=== PATIENT | male | born 1990 | race Caucasian/White ===

== ENCOUNTER 2017-04-26 22:56 | Emergency (ER) | payer SELFPAY ==
[~2017-04-26] VITALS: Ht 182.9 cm; Wt 90.5 kg
[~2017-04-26 22:56] MED LIST: HYDR-3011 PO; LORA-441 PO
[2017-04-26 22:59] VITALS: Ht 182.9 cm; Wt 90.5 kg
--- NOTE | 2017-04-27 00:41 | RADRPT ---
PROCEDURE: XR Chest. CLINICAL INDICATION: Shortness of breath. TECHNIQUE: Portable AP upright view of the chest was obtained. COMPARISON: None. FINDINGS: The cardiomediastinal silhouette is within normal limits. The lungs are clear. There is no evidenc e for pleural effusion, pneumothorax or pulmonary vascular congestion. The osseous structures are i ntact with no evidence for acute abnormality. RPTAT:HJJR IMPRESSION: No evidence for acute intrathoracic pathology. Physician Shena Date Time Electronically viewed and signed by Physician Shena on 04/27/2017 00:41 JR/
--- NOTE | 2017-04-27 01:30 | ERD ---
ER Documentation Chief Complaint Date/Time DATE: 04/27/17 TIME: 01:25 Chief Complaint hx of anxiety, felt heart was racing with SOB s/s resolved HPI Patient is a 26-year-old male with history of anxiety who presents to the emergency department for concerns of palpitations and shortness of breath. Patient states his symptoms occurred 1.5 hours ago. Patient states he sat down to eat dinner when his symptoms started. Patient states he was drinking one beer at the time. Patient states his symptoms lasted less than 1 minute. At this time patient is no longer having palpitations or shortness of breath. Patient denies any chest pain, nausea, vomiting, dizziness, lightheadedness or loss of consciousness. Patient does report daily stress. Patient denies any homicidal or suicidal ideations at this time. Patient states he has seen a psychiatrist in the past for his symptoms and given a prescription for Ativan which she does not wish to take. No recent travel. No recent surgeries. Patient denies history of PE or DVT ROS All systems reviewed and are negative except as per history of present illness. Medications Home Meds Active Scripts Lorazepam* (Ativan*) 0.5 Mg Tablet, 0.5 MG PO DAILY, #2 TAB Prov:SUDHA COFFEY PA-C 07/06/16 Hydroxyzine Hcl* (Hydroxyzine Hcl*) 25 Mg Tablet, 25 MG PO Q8H Y for ANXIETY, # 30 TAB Prov:SUDHA COFFEY PA-C 07/06/16 Allergies Allergies: Coded Allergies: No Known Allergy (Unverified , 06/09/16) PMhx/Soc History of Surgery: No Anesthesia Reaction: No Hx Neurological Disorder: No Hx Respiratory Disorders: Yes (CHILDHOOD ASTHMA) Hx Cardiac Disorders: No Hx Psychiatric Problems: Yes (Anxiety ) Hx Miscellaneous Medical Probl: No Hx Alcohol Use: Yes (SOCIALLY LAST DRANK 1 BEER TODAY) Hx Substance Use: No Hx Tobacco Use: Yes (1/2 PACK CIG/DAY) Smoking Status: Current every day smoker Physical Exam Vitals Vital Signs Date Time Temp Pulse Resp B/P Pulse Ox O2 Delivery O2 Flow Rate FiO2 04/26/17 22:59 98.3 89 16 136/81 100 Physical Exam GENERAL: Well-developed, well-nourished male. Appears in no acute distress. Taking in full sentences. HEAD: Normocephalic, atraumatic. EYES: Pupils are equally reactive bilaterally. EOMs grossly intact. No conjunctival erythema. ENT: Moist mucous membranes. No uvula deviation. No kissing tonsils. NECK: Supple. No meningismus. Normal range of motion of the neck. LUNGS: Clear to auscultation bilaterally. No rhonchi, wheezing, rales or coarse breath sounds. HEART: Regular rate and rhythm. No murmurs, rubs or gallops. BACK: No midline tenderness. EXTREMITIES: Equal pulses bilaterally. No peripheral clubbing, cyanosis or edema. No unilateral leg swelling. NEUROLOGIC: Alert and oriented. Moving all four extremities without any difficulty. Normal speech. Steady gait. SKIN: Normal color. Warm and dry. No rashes or lesions. Procedures/MDM ED COURSE: The patient was stable throughout ED course. I kept the patient and/or family informed of laboratory and diagnostic imaging results throughout the ED course. EKG: Read by Dr. Blevins, attending physician. EKG shows normal sinus rhythm at a rate of 72 b[,. No arrhythmias, acute ST elevations or T wave changes were noted. DIAGNOSTIC IMAGING: Read by radiologist. Patient: EULALIA OWENS : 1990 Age: 26 Sex: M MR #: [id number] DOS: 04/26/17 2339 Ordering MD: KAMILA CAAL PA-C Location: [facility] Room/Bed: PROCEDURE: XR Chest. CLINICAL INDICATION: Shortness of breath. TECHNIQUE: Portable AP upright view of the chest was obtained. COMPARISON: None. FINDINGS: The cardiomediastinal silhouette is within normal limits. The lungs are clear. There is no evidence for pleural effusion, pneumothorax or pulmonary vascular congestion. The osseous structures are intact with no evidence for acute abnormality. RPTAT:HJJR IMPRESSION: No evidence for acute intrathoracic pathology. Physician Shena Date Time Electronically viewed and signed by Physician Shena on 04/27/2017 00:41 JR/ CC: KAMILA CAAL PA-C MEDICAL DECISION MAKING: This is a 26-year-old male who presents to the emergency department for concerns of palpitations and shortness of breath which occurred 1.5 hours ago. Patient's symptoms are completely resolved at this time. Patient denied recent surgeries, recent travel, history of PE or DVT.. Vital signs were reviewed. Patient was afebrile. Patient was not hypoxic. Cardiac exam was normal. Lung exam was normal. EKG was within normal limits. Chest x-ray was within normal limits. PERC score was 0. At this time, the patient's presentation is most consistent with palpitations. Low suspicion for ACS, arrhythmia, pericarditis, pneumothorax, pneumonia, pleural effusion, CHF, PE. Low suspicion for suicidal homicidal ideations at this time. Patient was advised to follow-up with a box packer on an outpatient basis. Referral information provided. Patient may benefit from a 24 hour Holter monitoring study. DISCHARGE: At this time, patient is stable for discharge and outpatient management. Patient was given a copy of all imaging studies obtained today. I have instructed the patient to follow-up with his/her primary care physician in 1-2 days. If symptoms persist, patient may need to see a specialist for further examinations and testing. I have instructed the patient to promptly return to the ER at any time for any new or worsening symptoms including increased increased pain, fever, nausea, vomiting, numbness, weakness, diaphoresis or LOC. The patient and/or family expressed understanding of and agreement with this plan. All questions were answered. Home care instructions were provided. Disclaimer: Inadvertent spelling and grammatical errors are likely due to EHR/ dictation software use and do not reflect on the overall quality of patient care. Also, please note that the electronic time recorded on this note does not necessarily reflect the actual time of the patient encounter. Departure Diagnosis: Primary Impression: Palpitations Condition: Stable Patient Instructions: Palpitations Referrals: EDWIN KIM RAMESH K MD BAGHERI,KRANTHI FERGUSON MD,SOLA HARRINGTON,AMAURY Montejo MD [facility] YOU HAVE RECEIVED A MEDICAL SCREENING EXAM AND THE RESULTS INDICATE THAT YOU DO NOT HAVE A CONDITION THAT REQUIRES URGENT TREATMENT IN THE EMERGENCY DEPARTMENT. FURTHER EVALUATION AND TREATMENT OF YOUR CONDITION CAN WAIT UNTIL YOU ARE SEEN IN YOUR DOCTORS OFFICE WITHIN THE NEXT 1-2 DAYS. IT IS YOUR RESPONSIBILITY TO MAKE AN APPOINTMENT FOR FOLOW-UP CARE. IF YOU HAVE A PRIMARY DOCTOR --you should call your primary doctor and schedule an appointment IF YOU DO NOT HAVE A PRIMARY DOCTOR YOU CAN CALL OUR PHYSICIAN REFERRAL HOTLINE AT IF YOU CAN NOT AFFORD TO SEE A PHYSICIAN YOU CAN CHOSE FROM THE FOLLOWING [facility] [address] [facility] [address] [facility] [address] [facility] [address] [facility] [address] [facility]. [facility] [address] [facility] [facility] YOU HAVE RECEIVED A MEDICAL SCREENING EXAM AND THE RESULTS INDICATE THAT YOU DO NOT HAVE A CONDITION THAT REQUIRES URGENT TREATMENT IN THE EMERGENCY DEPARTMENT. FURTHER EVALUATION AND TREATMENT OF YOUR CONDITION CAN WAIT UNTIL YOU ARE SEEN IN YOUR DOCTORS OFFICE WITHIN THE NEXT 1-2 DAYS. IT IS YOUR RESPONSIBILITY TO MAKE AN APPOINTMENT FOR FOLOW-UP CARE. IF YOU HAVE A PRIMARY DOCTOR --you should call your primary doctor and schedule and appointment IF YOU DO NOT HAVE A PRIMARY DOCTOR YOU CAN CALL OUR PHYSICIAN REFERRAL HOTLINE AT . IF YOU CAN NOT AFFORD TO SEE A PHYSICIAN YOU CAN CHOSE FROM THE FOLLOWING [facility] INSTITUTIONS: [facility] [address] [place] [address] [facility] [address] [place] [address] [facility] [address] [place] [address] Additional Instructions: Call your primary care doctor TOMORROW for an appointment during the next 1-2 days.See the doctor sooner or return here if your condition worsens before your appointment time. Follow up with a box packer for 24 hour holter monitoring. KAMILA CAAL PA-C Apr 27, 2017 01:30
== END 2017-04-27 01:05 | disposition home or self-care (01) ==
LOC: FTE 22:56
DX: R00.2 Palpitations (principal); F17.210 Nicotine dependence, cigarettes, uncomplicated
CPT/HCPCS: 71010; 93005